=== PATIENT | male | born 1995 | race Caucasian/White ===

== ENCOUNTER → 2020-04-14 | Outpatient (CLI) | payer BC ==
[2020-04-14 13:51] LABS: HEPATITIS B SURFACE ANTIBODY NEGATIVE (POSITIVE); HEPATITIS B SURFACE ANTIGEN NEGATIVE (NEGATIVE)
[2020-04-17 23:16] LABS: HEPATITIS A IgG TOTAL Positive (Negative); HEPATITIS B CORE ANTIBODY IGG Negative (Negative); HEPATITIS C QUANTITATION 164680 IU/mL (.); HEPATITIS C VIRUS GENOTYPE 1b (.)
== END ==
LOC: M PLALAB 11:41
PROVIDERS: ATTEND Internal Medicine Infectious Disease
DX: B19.20 Unspecified viral hepatitis C without hepatic coma (principal)